=== PATIENT | female | born 2000 | race Two or more races ===

== ENCOUNTER 2022-07-10 13:01 | Emergency (ER) | payer MEDICAID ==
[~2022-07-10] VITALS: Ht 157.5 cm; Wt 61.4 kg
[2022-07-10 14:45] VITALS: BP 99/60
[2022-07-10] MEDS ORDERED: AMOX875T3 PO (16:30)
== END 2022-07-10 16:51 | disposition home or self-care (01) ==
LOC: ER 13:01
DX: K04.7 Periapical abscess without sinus (principal)

== ENCOUNTER 2023-12-09 11:54 | Emergency (ER) | payer MEDICAID ==
[~2023-12-09] VITALS: Ht 157.5 cm; Wt 61.4 kg
[~2023-12-09 11:54] MED LIST: AMOX875T3 PO
[2023-12-09 12:21] VITALS: BP 110/67; RESP 16; O2SAT 98
[2023-12-09 12:32] VITALS: PULSE 81
[2023-12-09 13:16] LABS: Basophils # (auto) 0.1 10 ^3/uL (0-0.2); Basophils % (auto) 1.1 % (0.0-2.0); Eosinophils # (auto) 0.4 10 ^3/uL (0-0.8); Eosinophils % (auto) 5.5 % (0.0-7.0); Hematocrit 43.2 % (36.0-46.0); Hemoglobin 14.5 g/dL (12.2-16.2); Lymphocytes # (auto) 2.2 10 ^3/uL (0.4-5.4); Lymphocytes % (auto) 32.3 % (10.0-50.0); Mean Corpuscular Hemoglobin 32.3 pg (28.0-32.0); Mean Corpuscular Hgb Conc. 33.6 g/dL (32.0-36.0); Mean Corpuscular Volume 95.9 fL (80.0-100.0); Monocytes # (auto) 0.7 10 ^3/uL (0-1.3); Monocytes % (auto) 10.4 % (0.0-12.0); Neutrophils # (auto) 3.4 10 ^3/uL (1.6-8.6); Neutrophils % (auto) 50.7 % (37.0-80.0); Red Blood Cells 4.51 10^6/uL (4.0-5.20); White Blood Cell 6.8 10^3/uL (4.4-10.8)
[2023-12-09 13:40] LABS: Alanine Aminotransferase 21 U/L (7-40); Albumin 4.7 g/dL (3.2-4.8); Alkaline Phosphatase 52 U/L (46-116); Anion Gap 10 (5-15); Aspartate Aminotransferase 19 U/L (13-40); BUN/Creatinine Ratio 11.4 (10.0-20.0); Blood Urea Nitrogen 8 mg/dL (9-23); Calcium 9.9 mg/dL (8.5-10.1); Carbon Dioxide 24 mmol/L (20-30); Chloride 106 mmol/L (98-107); Glucose 80 mg/dL (74-106); Potassium 3.9 mmol/L (3.5-5.1); Sodium 140 mmol/L (136-145)
[2023-12-09 13:41] LABS: Bilirubin, Total 0.7 mg/dL (0.2-1.0); Total Protein 7.3 g/dL (5.7-8.2)
[2023-12-09 13:56] LABS: Urine Bacteria None Seen /hpf (None Seen)
[2023-12-09 14:01] LABS: Urine Blood Negative /uL (Negative); Urine Budding Yeast OCCASIONAL /hpf (None Seen); Urine Clarity Clear (Clear); Urine Color Yellow (Yellow); Urine Mucus FEW (None Seen); Urine Protein, UAD TRACE (Negative); Urine Specific Gravity 1.028 (1.001-1.035); Urine Urobilinogen Normal (Negative); Urine WBC 7 /hpf (0 - 5); Urine pH 5.5 (5.0-9.0)
== END 2023-12-09 18:26 | disposition home or self-care (01) ==
LOC: ER 11:54
DX: E86.0 Dehydration (principal); R55 Syncope and collapse; R42 Dizziness and giddiness; Z32.02 Encounter for pregnancy test, result negative
CPT/HCPCS: 36415; 70450; 80053; 81001; 81025; 82962; 85025; 93005

== ENCOUNTER 2024-08-14 01:48 | Emergency (ER) | payer MEDICAID ==
[~2024-08-14] VITALS: Ht 157.5 cm; Wt 65.4 kg
[2024-08-14 04:20] VITALS: BP 100/65; PULSE 86; RESP 20; TEMP 98; O2SAT 98
--- NOTE | 2024-08-14 04:22 | DVH ---
PROCEDURE: 3 radiographs. INDICATION: distal right thumb laceration TECHNIQUE: 3 views of the right hand were obtained. COMPARISON: None FINDINGS: There is no evidence of fracture or dislocation. Joint spaces are maintained. The soft tis sues are unremarkable. No radiopaque foreign body. IMPRESSION: 1. No fracture or dislocation. No radiopaque foreign body.
[2024-08-14] MEDS: LIDOCAINE 1% HCL (LOCAL ANESTH.) INJ 20ML MDV ID ONE (04:35)
[2024-08-14] MEDS ORDERED: AUG875T PO (05:04)
--- NOTE | 2024-08-14 05:04 | ED.PDOC ---
HPI Comments PT PRESENTED TO ED FOR RIGHT HAND PALM LACERATION APPROX. 1 INCH IN LENGTH AFTER ATTMEPTING TO CLOSE GLASS WINDOW. PT STATED GLASS WINDOW BROKE AND UKNOWN IF LACERATION MIGHT HAVE GLASS IN IT. PT DENIED NUMBNESS OR WEAKNESS. CMS INTACT. BLEEDING CONTROLED IN TRIAGE Chief Complaint: Laceration Time Seen by MD: 01:52 Primary Care Provider: unknown Reviewed Notes: Nurses Notes, Medications, Allergies Allergies: Coded Allergies: No Known Drug Allergy (Verified Allergy, Unknown, 07/10/22) Home Meds Active Scripts Amoxicillin Trihydrate (Amoxicillin) 875 Mg Tab, 1 TAB PO BID for 7 Days, #14 T AB Prov:SHERRIE ADAMS Hayden CM 07/10/22 Information Source: Patient Mode of Arrival: Ambulatory Complexity: Simple Laceration Length (cm): 1 Past Medical History PAST MEDICAL HISTORY: Denies Surgical History: Denies all surgeries SEAMLESS TUBE ROLLER History: No Pertinent SEAMLESS TUBE ROLLER History Family History Family History: Reviewed,noncontributory to illness, No family hx of Cancer, No family hx of DM, No family hx of Heart britney, No family hx of HTN, No family hx ofKidney britney, No family hx of Liver britney, No family hx of Lung britney, No family hx of Stroke Social History Smoker: Non-Smoker Alcohol: Denies ETOH Use Drugs: Denies Drug Use Lives In: Home Constitutional: denies: chills, diaphoresis, fatigue, fever, malaise, sweats, weakness, others EENTM: denies: blurred vision, double vision, ear bleeding, ear discharge, ear drainage, ear pain, ear ringing, eye pain, eye redness, hearing loss, mouth pain, mouth swelling, nasal discharge, nose bleeding, nose congestion, nose pain, photophobia, tearing, throat pain, throat swelling, voice changes, others Respiratory: denies: cough, hemoptysis, orthopnea, SOB at rest, shortness of breath, SOB with excertion, stridor, wheezing, others Cardiovascular: denies: chest pain, dizzy spells, diaphoresis, Dyspnea on exertion, edema, irregular heart beat, left arm pain, lightheadedness, palpitations, PND, syncope, others Gastrointestinal: denies: abdomen distended, abdominal pain, blood streaked bowels, constipated, diarrhea, dysphagia, difficulty swallowing, hematemesis, melena, nausea, poor appetite, poor fluid intake, rectal bleeding, rectal pain, vomiting, others Genitourinary: denies: abnormal vagina bleeding, burning, dyspareunia, dysuria, flank pain, frequency, hematuria, incontinence, pain, , vagina discharge, urgency, others Neurological: denies: dizziness, fainting, headache, left sided numbness, left sided weakness, numbness, paresthesia, pre-existing deficit, right sided numbness, right sided weakness, seizure, speech problems, tingling, tremors, weakness, others Musculoskeletal: denies: back pain, gout, joint pain, joint swelling, muscle pain, muscle stiffness, neck pain, others Integumetry: reports: laceration (LACERATION TO RIGHT HAND PALM); denies: bruises, change in color, change in hair/nails, dryness, lesions, lumps, rash, w ounds, others Allergic/Immunocompromised: denies: Difficulty Healing, Frequent Infections, Hives, Itching, others Hematologic/Lymphatic: denies: anemia, blood clots, easy bleeding, easy bruising, swollen glands, others Endocrine: denies: excessive hunger, excessive sweating, excessive thirst, excessive urination, flushing, intolerance to cold, intolerance to heat, unexplained weight gain, unexplained weight loss, others Psychiatric: denies: anxiety, bipolar disorder, depression, hopeless, panic disorder, schizophrenia, sleepless, suicidal, others Physical Exam General Appearance: No Apparent Distress, Normal HEENT: Pharynx Normal Neck: Full Range of Motion, Non-Tender Respiratory: Lungs Clear, No Respiratory Distress, Normal Breath Sounds Cardiovascular: No Murmur, Normal Peripheral Pulses, Regular Rate/Rhythm Breast Exam: Deferred Gastrointestinal: Non Tender, Soft Genitalia: Deferred Pelvic: Deferred Rectal: Deferred Extremities: Normal capillary refill, Normal inspection, Normal range of motion, Non-tender, No pedal edema Musculoskeletal : Apperance: Normal Neurologic: Alert, presales consultant II-XII nml as Tested, No Motor Deficits, Normal Affect, Normal Mood, No Sensory Deficits Cerebellar Function: Normal Reflexes: Normal Skin: Dry, Lacerations (1.5 CM LACERATION TO RIGHT PALM ASPECT BLEEDING CONTROLLED NO OBVIOUS FOREIGN BODY), Normal Color, Warm Lymphatic: No Adenopathy Was a procedure done? Was a procedure done?: Yes Sedation Sedation?: No Informed consent obtained: Yes Laceration Repair : Location RIGHT HAND PALM ASPECT Length 1.5 CM Anesthetic: Lidocaine Laceration Repair Prep: Saline Laceration Repair Wound Comple: epidermis/dermis repair Laceration Repair: Number of sutures (5) Informed consent obtained: Yes Risks, benefits, and alternati: Yes Notes PATIENT TOLERATED WELL MINIMAL BLOOD LOSS NO NOTED FOREIGN BODY. Differential diagnosis Generic Laceration: Fracture, Retained Foriegn Body, Tendon Injury, Laceration, Avulsion X-Ray, Labs, Meds, VS Vital Signs Date Time Temp Pulse Resp B/P (MAP) Pulse Ox O2 Delivery O2 Flow Rate FiO2 08/14/24 04:20 86 20 98 Room Air* 0 21 08/14/24 04:20 98.0 86 20 100/65 (77) 98 98.0 08/14/24 01:59 97.7 74 22 100/65 (77) 98 X-Ray, Labs, Meds, VS Comment X-RAY SHOWS NO ACUTE FINDINGS OR FOREIGN BODY. SEE PROCEDURE NOTE. ADVISED PATIENT TO FOLLOW UP IN 5-7 DAYS FOR SUTURE REMOVAL AND WOUND RE-EVALUATION. FOLLOW UP WITH PCP IN 2-3 DAYS NECESSARY. ER RETURN PRECAUTIONS GIVEN PATIENT INDICATED UNDERSTANDING AND AGREES WITH DISCHARGE PLAN OF CARE. [id number] TYLENOL OR MOTRIN NEEDED PER PAIN PER LABELED DOSING INSTRUCTIONS Time of 1ST Reevaluation: 05:00 Reevaluation 1ST: Improved Patient Education/Counseling: Diagnosis, Treatment, Prognosis, Need For Follow Up Family Education/Counseling: No Family Present Departure 1 Departure Time of Disposition: 05:03 Impression: Primary Impression: Laceration of hand without foreign body Qualified Codes: S61.411A - Laceration without foreign body of right hand, initial encounter Disposition: HOME / SELF CARE / HOMELESS Condition: Stable Discharged With: Self Critical Care Note Critical Care Time?: No Stability Stability form required: NERIS Villatoro Aug 14, 2024 05:04
== END 2024-08-14 05:15 | disposition home or self-care (01) ==
LOC: ER 01:48
DX: S61.011A Laceration without foreign body of right thumb without damage to nail, initial encounter (principal); X58.XXXA Exposure to other specified factors, initial encounter; Y93.89 Activity, other specified; Y92.89 Other specified places as the place of occurrence of the external cause; Y99.8 Other external cause status
CPT/HCPCS: 12001; 73130

== ENCOUNTER 2024-08-22 10:10 | Emergency (ER) | payer MEDICAID ==
[~2024-08-22] VITALS: Ht 157.5 cm; Wt 59.1 kg
[2024-08-22 10:53] VITALS: BP 100/66; PULSE 99; RESP 16; TEMP 98.3; O2SAT 97
--- NOTE | 2024-08-22 10:58 | ED.PDOC ---
History of Present Illness HPI Comments A 24 YEAR OLD FEMALE PRESENTS TO THE ED WITH CHIEF COMPLAINT OF SUTURE REMOVAL. PATIENT RELAYS THAT SHE HAD A LACERATION TO HER RIGHT HAND ON 08/14, HAVING SUTURES PLACED AND WAS TOLD TO COME BACK IN 7 DAYS. PATIENT REPORTS THAT HER HAND IS STILL SWOLLEN BUT SHE IS HERE TO HAVE HER SUTURES REMOVED. PATIENT D ENIES ANY NUMBNESS, WEAKNESS, OR DISCHARGE. Chief Complaint: Suture Removal Time Seen by MD: 10:53 Primary Care Provider: NONE Reviewed Notes: Nurses Notes, Medications, Allergies Allergies: Coded Allergies: No Known Drug Allergy (Verified Allergy, Unknown, 07/10/22) Home Meds Active Scripts Amoxicillin Trihydrate (Amoxicillin) 875 Mg Tab, 1 TAB PO BID for 7 Days, #14 T AB Prov:SHERRIE ADAMS CERTIFIED TEACHER ASSISTANT 07/10/22 Discontinued Scripts Amoxicillin & Pot Clavulanate (AUGMENTIN TABLET) 875 Mg Tb, 1 TAB PO BID for 5 Days, #10 TAB Prov:NERIS MCALLISTER CERTIFIED TEACHER ASSISTANT 08/14/24 Information Source: Patient Mode of Arrival: Ambulatory Severity: Moderate Timing: Hours Duration: Since onset Prehospital treatment: None Medication Refill: For: Other (RIGHT PALM LACERATION RECHECK ) Past Medical History PAST MEDICAL HISTORY: Denies Surgical History: Denies all surgeries ENGINEERING EXECUTIVE History: No Pertinent ENGINEERING EXECUTIVE History Family History Family History: Reviewed,noncontributory to illness, No family hx of Cancer, No family hx of DM, No family hx of Heart britney, No family hx of HTN, No family hx ofKidney britney, No family hx of Liver britney, No family hx of Lung britney, No family hx of Stroke Social History Smoker: Non-Smoker Alcohol: Denies ETOH Use Drugs: Denies Drug Use Lives In: Home Constitutional: denies: chills, diaphoresis, fatigue, fever, malaise, sweats, weakness, others EENTM: denies: blurred vision, double vision, ear bleeding, ear discharge, ear drainage, ear pain, ear ringing, eye pain, eye redness, hearing loss, mouth pain, mouth swelling, nasal discharge, nose bleeding, nose congestion, nose pain, photophobia, tearing, throat pain, throat swelling, voice changes, others Respiratory: denies: cough, hemoptysis, orthopnea, SOB at rest, shortness of breath, SOB with excertion, stridor, wheezing, others Cardiovascular: denies: chest pain, dizzy spells, diaphoresis, Dyspnea on exertion, edema, irregular heart beat, left arm pain, lightheadedness, palpitations, PND, syncope, others Gastrointestinal: denies: abdomen distended, abdominal pain, blood streaked bowels, constipated, diarrhea, dysphagia, difficulty swallowing, hematemesis, melena, nausea, poor appetite, poor fluid intake, rectal bleeding, rectal pain, vomiting, others Genitourinary: denies: abnormal vagina bleeding, burning, dyspareunia, dysuria, flank pain, frequency, hematuria, incontinence, pain, , vagina discharge, urgency, others Neurological: denies: dizziness, fainting, headache, left sided numbness, left sided weakness, numbness, paresthesia, pre-existing deficit, right sided numbness, right sided weakness, seizure, speech problems, tingling, tremors, weakness, others Musculoskeletal: denies: back pain, gout, joint pain, joint swelling, muscle pain, muscle stiffness, neck pain, others Integumetry: reports: others (SUTURES TO RIGHT HAND); denies: bruises, change in color, change in hair/nails, dryness, laceration, lesions, lumps, rash, wounds Allergic/Immunocompromised: denies: Difficulty Healing, Frequent Infections, Hives, Itching, others Hematologic/Lymphatic: denies: anemia, blood clots, easy bleeding, easy bruising, swollen glands, others Endocrine: denies: excessive hunger, excessive sweating, excessive thirst, excessive urination, flushing, intolerance to cold, intolerance to heat, unexplained weight gain, unexplained weight loss, others Psychiatric: denies: anxiety, bipolar disorder, depression, hopeless, panic disorder, schizophrenia, sleepless, suicidal, others All Other Systems: Reviewed and Negative Physical Exam General Appearance: No Apparent Distress, Normal HEENT: Normal ENT Inspection, PERRL/EOMI, Pharynx Normal Neck: Full Range of Motion, Non-Tender, Normal, Normal Inspection Respiratory: Chest Non-Tender, Lungs Clear, No Accessory Muscle Use, No Respiratory Distress, Normal Breath Sounds Cardiovascular: No Edema, No JVD, No Murmur, No Gallop, Normal Peripheral Pulses, Regular Rate/Rhythm Breast Exam: Deferred Gastrointestinal: No Organomegaly, Non Tender, No Pulsatile Mass, Normal Bowel Sounds, Soft Genitalia: Deferred Pelvic: Deferred Rectal: Deferred Extremities: No calf tenderness, Normal capillary refill, Normal inspection, Normal range of motion, Non-tender, No pedal edema Musculoskeletal : Apperance: Normal Neurologic: Alert, muffler mechanic II-XII nml as Tested, No Motor Deficits, Normal Affect, Normal Mood, No Sensory Deficits Cerebellar Function: Normal Reflexes: Normal Skin: Dry, Lacerations (RIGHT PALM LACERATION REPAIRED, HEALING, NO INFECTION SIGNS. ), Normal Color, Warm Peripheral Pulses: 2+ carotid (R), 2+ carotid (L) Lymphatic: No Adenopathy Was a procedure done? Was a procedure done?: No Differential Dx Considerations may include: SUTURE REMOVAL OF RIGHT PALM, LACERATION RECHECK X-Ray, Labs, Meds, VS Vital Signs Date Time Temp Pulse Resp B/P (MAP) Pulse Ox O2 Delivery O2 Flow Rate FiO2 08/22/24 10:53 98.3 99 16 100/66 (77) 97 98.3 08/22/24 10:53 99 16 97 Room Air 08/22/24 10:19 98.3 99 16 100/66 (77) 97 X-Ray, Labs, Meds, VS Comment - I reviewed the following notes from patient's past medical encounters: 08/14/24 FOR LACERATION OF RIGHT HAND - The following tests were ordered, and results were reviewed by me: ALEX - Additional information was gathered from interviewing the following independent Historian: ALEX - I reviewed and agreed with the following test results read by other provider: ALEX - I discussed treatments and results with medical personnel. UNABLE TO REMOVE SUTURES DUE TO SEVERE PAIN AND SUTURES NOT READY FOR REMOVAL. ADVISED PATIENT TO RETURN IN 1 WEEK FOR REMOVAL. Time of 1ST Reevaluation: 11:01 Reevaluation 1ST: Improved Patient Education/Counseling: Diagnosis, Treatment, Need For Follow Up Family Education/Counseling: Diagnosis, Treatment, No Family Present Medical Screening: No EMC Exist At This Time Departure 1 Departure Time of Disposition: 11:01 Impression: Primary Impression: Encounter for re-check of laceration wound Disposition: HOME / SELF CARE / HOMELESS Condition: Stable Additional Instructions: F/U PCP IN 2 DAYS RECHECK. IF CONDITION BECOME WORSE, RETURN TO ED [facility]. Discharged With: Self Critical Care Note Critical Care Time?: No Stability Stability form required: No Heart Score Heart Score: Heart Score Response (Comments) Value History N/A 0 EKG N/A 0 Age N/A 0 Risk Factors N/A 0 Troponin N/A 0 Total 0 I personally scribed for ELHAM MCCAULEY ([email or web address]) on 08/22/24 at 10:58. Electronically submitted by Ramses Deng ([email or web address]). ELHAM MCCAULEY Aug 22, 2024 10:58
== END 2024-08-22 10:58 | disposition home or self-care (01) ==
LOC: ER 10:10
DX: S61.411D Laceration without foreign body of right hand, subsequent encounter (principal); X58.XXXD Exposure to other specified factors, subsequent encounter